=== PATIENT | male | born 1975 | race Caucasian/White ===

== ENCOUNTER 2018-11-02 11:25 | Observation (INO) | payer BC, OTHER ==
[2018-11-02] MEDS ORDERED: SODIUM CHLORIDE 1,000 ML IV STA ×4 (11:40→21:53)
[2018-11-02] MEDS ORDERED: FAMOTIDINE 20 MG/50 ML IVPB 20 MG/50 ML MG IVPB ONE ×2 (11:40→11:57)
[2018-11-02] MEDS ORDERED: ONDANSETRON 4 MG/2 ML VIAL IVPUSH ONE (11:40)
--- NOTE | 2018-11-02 11:40 | PDOC ---
History of Present Illness - General Chief Complaint: Nausea/Vomiting Stated Complaint: VOMITING FOR2 DAYS Time Seen by Provider: 11/02/18 11:39 History Source: Patient Exam Limitations: No Limitations - History of Present Illness Initial Comments: 11/02/18 11:45 43 y/o male with h/o kidney stones presenting with X 2 days of back pain, nausea and vomiting, diarrhea, inability to tolerate PO. attempted to take PO josefina, tea, gatorade without relief. He notes 10X episodes of NBNB yellowish vomiting x 2 days, yesterday started having watery brown nonbloody diarrhea x 2 episodes. No fever or chills, no cough/congestion, cp, sob. No AP, flank pain, urinary sx or hematuria. +back pain with vomiting and movement. +generalized weakness, headache and lightheadedness. No sick contacts or travel. No new changes in medications. no suspicous food intake. no recent abx use or contaminants. Allergies: NKA Past Medical History: kidney stones Social history: Lives with family. No smoking. No alcohol. No illicit drugs. no Marijuana use Surgical history: none ROS Constitutional: no fevers or chills. +general weakness HEENT: +headache and dizziness. No congestion. No visual/hearing disturbances. CVS: no cp or syncope. Resp: no sob. No cough. Gastrointestinal: NO abdominal pain, +nausea, diarrhea, vomiting. Genitourinary: no urinary sx, hematuria. MUSCULOSKELETAL: No joint pain and swelling. +back pain. SKIN: no redness or skin changes, no discharge, no rash. No wounds. Hematologic: no easy bruising/bleeding. NEUROLOGIC: +headache and dizziness. No LOC or altered mental status. No weakness, numbness or tingling. Allergic/Immunologic: no allergies All other systems reviewed and negative, or as documented in HPI. PE: General: actively vomiting, moderate distress 2/2 retching and vomiting. HEENT: NCAT, PERRL, EOMI, clear conjunctiva, anicteric, very dry mucus membranes, clear oropharynx, no oral lesions.. Neck: neck supple, FROM Resp: CTAB, normal and even respirations, no respiratory distress CVS: RRR, no murmurs, 2+ peripheral pulses throughout, no peripheral edema Abdomen: soft, obese, no rebound or guarding. No tenderness in all quadrants Back: nontender, normal inspection and ROM. no CVAT MSK: no edema, HALL x4, ROM intact. No clubbing or cyanosis. normal bulk and tone. Neuro: alert Skin: warm and well perfused, cap refill <2 sec, normal color 11/02/18 14:22 Past History - Past Medical History Allergies/Adverse Reactions: Allergies Allergy/AdvReac Type Severity Reaction Status Date / Time No Known Allergies Allergy Verified 11/02/18 11:26 Home Medications: Ambulatory Orders NK [No Known Home Medication] 11/02/18 Anemia: No Asthma: No Cancer: No Cardiac Disorders: No CVA: No COPD: No CHF: No Dementia: No Diabetes: No GI Disorders: No Disorders: No HTN: No Hypercholesterolemia: No Kidney Stones: Yes (X1) Liver Disease: No Seizures: No Thyroid Disease: No - Suicide/Smoking/Psychosocial Hx Smoking History: Never smoked Have you smoked in the past 12 months: No Information on smoking cessation initiated: No Hx Alcohol Use: No Drug/Substance Use Hx: No Substance Use Type: None *Physical Exam - Vital Signs Last Vital Signs Temp Pulse Resp BP Pulse Ox 98 F 88 16 140/91 99 11/02/18 11:26 11/02/18 11:26 11/02/18 11:26 11/02/18 11:26 11/02/18 11:26 Moderate Sedation - Procedure Monitoring Vital Signs: Procedure Monitoring Vital Signs Temperature 98 F 11/02/18 11:26 Pulse Rate 88 11/02/18 11:26 Respiratory Rate 16 11/02/18 11:26 Blood Pressure 140/91 11/02/18 11:26 O2 Sat by Pulse Oximetry (%) 99 11/02/18 11:26 ED Treatment Course - LABORATORY CBC & Chemistry Diagram: 11/02/18 11:51 11/02/18 11:51 Medical Decision Making - Medical Decision Making 11/02/18 14:30 See HPI for details DDx abdominal pain: Renal colic, ureteral stone, biliary colic, metabolic/ electrolyte derangements. GERD, PUD, esophageal spasm, pancreatitis, hepatitis, colitis, gastroenteritis, cholecystitis, UTI, pyelonephritis, hernia, appendicitis, diverticulitis, mesenteric ischemia, malignancy. Vital signs reviewed, wnl. Temp here 100.6 Prior notes reviewed, including admissions, discharges and consultations. laboratory results and imaging reviewed, basic labs and lytes notable for significant leukocytosis of 33K, changed from prior. Remainder wnl, lipase and LFTs normal. Lipase Blood and urine cx pending. Infectious/septic workup pending UA_prelim neg, no leuk esterase or signs of infection. f/u cultures. EKG normal sinus rhythm, no interval abnormalities, narrow QRS, ST and T wave segments and morphology normal. Nonspecific T wave abnormalities TWI in III only. No contiguous lead changes. ED course: IVF, zofran and pepcid with improvement. Febrile here, given IV tylenol for antipyretic effect, recheck temp. IV ceftriaxone and flagyl for empiric abdominal infection coverage. CT a/p to eval for inflammation/infection with leukocytosis. results_suspected enteritis/ileitis. left perinephric stranding noted. however, no UA findings of infection, no flank pain to suggest pyelo currently, eitherway was covered with ceftriaxone empirically for gut infection/abdominal process. admit to hospitalist service. for n/v/d with leukocytosis, AGE vs acute colitis vs enteritis. IV abx, serial labs and supportive care/management. spoke to STEPHANIE Bosch and signed out hospitalist service.. 11/02/18 15:20 11/02/18 15:23 *DC/Admit/Observation/Transfer Diagnosis at time of Disposition: Enteritis, Leukocytosis, Febrile illness, acute - Discharge Dispostion Condition at time of disposition: Fair Decision to Admit order: Yes Decision to Admit order Date/Time: 11/02/18 15:22 - Referrals - Patient Instructions - Post Discharge Activity
[2018-11-02] MEDS ORDERED: ONDANSETRON 4 MG/2 ML VIAL ONE (11:58)
[2018-11-02 12:06] LABS: HEMATOCRIT 46.6 % (35.4-49); HEMOGLOBIN 15.3 GM/dl (11.7-16.9); MCH 25.9 pg (25.7-33.7); MCHC 32.7 g/dl (32.0-35.9); MEAN CELL VOLUME 79.2 fl (80-96); MEAN PLT VOLUME 7.9 fl (7.5-11.1); PLATELET COUNT 276 K/MM3 (134-434); RBC 5.88 M/mm3 (4.00-5.60); RDW 14.2 % (11.9-15.9)
[2018-11-02 12:15] LABS: ALBUMIN 4.2 g/dl (3.4-5.0); ALK PHOS 118 U/L (45-117); ANION GAP 13 MMOL/L (8-16); BILIRUBIN,TOTAL 0.8 mg/dl (0.2-1); BLOOD UREA NITROGEN 18 mg/dl (7-18); CALCIUM 9.7 mg/dl (8.5-10); CHLORIDE 102 mmol/L (98-107); CO2 22 mmol/L (21-32); GLUCOSE,RANDOM 120 mg/dl (74-106); POTASSIUM 3.8 mmol/L (3.5-5.1); SGOT/AST 26 U/L (15-37); SGPT/ALT 21 U/L (13-61); SODIUM 137 mmol/L (136-145); TOT PROT 8.4 g/dl (6.4-8.2)
[2018-11-02 12:41] LABS: LIPASE 68 U/L (73-393)
[2018-11-02] MEDS ORDERED: ACETAMINOPHEN 1000 MG/100 ML VIAL (NON FORMULARY) IVPB ONE (12:47)
[2018-11-02] MEDS ORDERED: ACETAMINOPHEN INJECTION 100 ML IVPB ONE (12:53)
[2018-11-02] MEDS ORDERED: SODIUM CHLORIDE 0.9% 500 ML INFUS.BAG IV ONE (13:18)
[2018-11-02 13:34] LABS: PLATELET ESTIMATE ADEQUATE
[2018-11-02 14:06] LABS: URINE APPEARANCE Clear; URINE BILIRUBIN Negative (NEGATIVE); URINE COLOR Amber; URINE GLUCOSE (UA) Negative (NEGATIVE); URINE KETONE Negative (NEGATIVE); URINE LEUK ESTERASE Negative (NEGATIVE); URINE NITRITE Negative (NEGATIVE); URINE PROTEIN 1+ (NEGATIVE)
[2018-11-02] MEDS ORDERED: CEFTRIAXONE 1,000 MG in DEXTROSE 5%-WATER - 50 ML IVPB ONE (14:21)
[2018-11-02] MEDS ORDERED: cefTRIAXone SODIUM 1 GM VIAL ONE (14:37)
--- NOTE | 2018-11-02 15:28 | HP ---
CHIEF COMPLAINT: Vomiting HISTORY OF PRESENT ILLNESS: 43 year-old male with a PMH significant for kidney stones presented to the ED with nausea, vomiting, and watery diarrhea x 2 days. Emesis has been bilious, episodes of dry heaving. Reports little to no urine output today despite hydrating with tea and gatorade. No hematuria, hematochezia, hematemesis. Reports at least one episode of shaking chills. Reports generalized weakness, headache and lightheadedness. No sick contacts or travel. No suspicous food intake. No recent antibiotic use. 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 Smoking: denies Alcohol: denies Drugs: denies Family History: Allergies No Known Allergies Allergy (Verified 11/02/18 11:26) HOME MEDICATIONS: Home Medications Medication Instructions Recorded NK [No Known Home Medication] 11/02/18 REVIEW OF SYSTEMS CONSTITUTIONAL: Absent: fever, chills, diaphoresis, generalized weakness, malaise, loss of appetite, weight change HEENT: Absent: rhinorrhea, nasal congestion, throat pain, throat swelling, difficulty swallowing, mouth swelling, ear pain, eye pain, visual changes CARDIOVASCULAR: Absent: chest pain, syncope, palpitations, irregular heart rate, lightheadedness , peripheral edema RESPIRATORY: Absent: cough, shortness of breath, dyspnea with exertion, orthopnea, wheezing, stridor, hemoptysis GASTROINTESTINAL: +nausea, vomiting, watery diarrhea Absent: abdominal pain, abdominal distension, constipation, melena, hematochezia GENITOURINARY: +oliguria Absent: dysuria, frequency, urgency, hesitancy, hematuria, flank pain, genital pain MUSCULOSKELETAL: Absent: myalgia, arthralgia, joint swelling, back pain, neck pain SKIN: Absent: rash, itching, pallor HEMATOLOGIC/IMMUNOLOGIC: Absent: easy bleeding, easy bruising, lymphadenopathy, frequent infections ENDOCRINE: Absent: unexplained weight gain, unexplained weight loss, heat intolerance, cold intolerance NEUROLOGIC: Absent: headache, focal weakness or paresthesias, dizziness, unsteady gait, seizure, mental status changes, bladder or bowel incontinence PSYCHIATRIC: Absent: anxiety, depression, suicidal or homicidal ideation, hallucinations. PHYSICAL EXAMINATION Vital Signs - 24 hr 11/02/18 11/02/18 11/02/18 11:26 12:52 14:13 Temperature 98 F 100.6 F H 98.9 F Pulse Rate 88 Pulse Rate [ 84 Right Radial] Respiratory 16 Rate Blood Pressure 140/91 Blood Pressure 143/91 [Left Arm] O2 Sat by Pulse 99 99 Oximetry (%) GENERAL: Awake, alert, and fully oriented, in no acute distress. Ill-appearing. HEAD: Normal with no signs of trauma. EYES: Pupils equal, round and reactive to light, extraocular movements intact, sclera anicteric, conjunctiva clear. No lid lag. EARS, NOSE, THROAT: Ears normal, nares patent, oropharynx clear without exudates. Dry mucous membranes. NECK: Normal range of motion, supple without lymphadenopathy, JVD, or masses. LUNGS: Breath sounds equal, clear to auscultation bilaterally. No wheezes, and no crackles. No accessory muscle use. HEART: Regular rate and rhythm, normal S1 and S2 without murmur, rub or gallop. ABDOMEN: Soft, nontender, not distended; hypoactive bowel sounds, no guarding, no rebound tenderness MUSCULOSKELETAL: Normal range of motion at all joints. No bony deformities or tenderness. No CVA tenderness. UPPER EXTREMITIES: 2+ pulses, warm, well-perfused. No cyanosis. No clubbing. No peripheral edema. LOWER EXTREMITIES: 2+ pulses, warm, well-perfused. No calf tenderness. No peripheral edema. NEUROLOGICAL: Cranial nerves II-XII intact. Normal speech. Normal gait. PSYCHIATRIC: Cooperative. Good eye contact. Appropriate mood and affect. SKIN: Warm, dry, normal turgor Laboratory Results - last 24 hr 11/02/18 11/02/18 11/02/18 11:51 11:51 12:50 WBC 33.0 H* RBC 5.88 H Hgb 15.3 Hct 46.6 MCV 79.2 L MCH 25.9 MCHC 32.7 RDW 14.2 D Plt Count 276 MPV 7.9 Absolute Neuts (auto) 27.9 Neutrophils % No Result Required. Neutrophils % (Manual) 79.0 Band Neutrophils % 3.0 Lymphocytes % No Result Required. Lymphocytes % (Manual) 3.0 L Monocytes % (Manual) 15 H Platelet Estimate Adequate Sodium 137 Potassium 3.8 Chloride 102 Carbon Dioxide 22 Anion Gap 13 BUN 18 Creatinine 1.0 Creat Clearance w eGFR > 60 Random Glucose 120 H Lactic Acid 1.6 Calcium 9.7 Total Bilirubin 0.8 AST 26 ALT 21 Alkaline Phosphatase 118 H Total Protein 8.4 H Albumin 4.2 Lipase 68 L Urine Color Urine Appearance Urine pH Ur Specific [place] Urine Protein Urine Glucose (UA) Urine Ketones Urine Blood Urine Nitrite Urine Bilirubin Urine Urobilinogen Ur Leukocyte Esterase 11/02/18 13:51 WBC RBC Hgb Hct MCV MCH MCHC RDW Plt Count MPV Absolute Neuts (auto) Neutrophils % Neutrophils % (Manual) Band Neutrophils % Lymphocytes % Lymphocytes % (Manual) Monocytes % (Manual) Platelet Estimate Sodium Potassium Chloride Carbon Dioxide Anion Gap BUN Creatinine Creat Clearance w eGFR Random Glucose Lactic Acid Calcium Total Bilirubin AST ALT Alkaline Phosphatase Total Protein Albumin Lipase Urine Color Bridgett Urine Appearance Clear Urine pH 6.0 Ur Specific [place] 1.020 Urine Protein 1+ H Urine Glucose (UA) Negative Urine Ketones Negative Urine Blood Negative Urine Nitrite Negative Urine Bilirubin Negative Urine Urobilinogen 1.0 Ur Leukocyte Esterase Negative ASSESSMENT/PLAN 43 year-old male with a PMH significant for kidney stones placed on observation for sepsis possibly secondary to enteritis. Sepsis possibly secondary to enteritis --Tm 100.6, WBC 33k. lactic acid wnl --11/02 CTAP: equivocal minimal concentric wall thickening involving an ileal bowel loop within the right upper pelvis, seen previously; possible persistent/ recurrent enteritis, inflammatory v. infectious; minimal to mild left perirenal soft tissue stranding, acute v. chronic nonspecific inflammatory change --start empiric Zosyn, ID to follow; blood, urine, stool cx, c.diff pending --low volume state: received 2L fluids in ED, third fluid on admission, with no UOP; give fourth litre, then hourly fluids; monitor lytes and renal function closely; strict I&Os --Tylenol, Zofran PRN FEN Fluids: give 4th litre NS, then 125mL/hr Electrolytes: replete as indicated Nutrition: NPO DVT prophylaxis: subq lovenox Dispo: continues to require observation. Visit type - Emergency Visit Emergency Visit: Yes ED Registration Date: 11/02/18 Care time: The patient presented to the Emergency Department on the above date and was hospitalized for further evaluation of their emergent condition. - New Patient This patient is new to me today: Yes Date on this admission: 11/02/18 - Critical Care Critical Care patient: No
[2018-11-02 15:54] LABS: EPI CELLS FEW /HPF
--- NOTE | 2018-11-02 16:23 | CON.ID ---
Consult Consult Specialty:: infectious diseases Referred by:: peg Reason for Consultation:: leukocytosis,vomiting - History of Present Illness Chief Complaint: abd pain,vomiting History of Present Illness: 43 year-old male with a PMH significant for kidney stones presented to the ED with nausea, vomiting, and watery diarrhea x 2 days. Emesis has been bilious, episodes of dry heaving. Reports little to no urine output today despite hydrating with tea and gatorade. No hematuria, hematochezia, hematemesis. Reports at least one episode of shaking chills. Reports generalized weakness, headache and lightheadedness. No sick contacts or travel. No suspicous food intake. No recent antibiotic use. says he is not passing gases also mentions that he had the same type of symptoms before - History Source History Provided By: Patient Limitations to Obtaining History: No Limitations - Past Medical History Renal/: Yes: Renal Calculi - Past Surgical History Past Surgical History: Yes: None - Alcohol/Substance Use Hx Alcohol Use: No History of Substance Use: reports: None - Smoking History Smoking history: Never smoked Have you smoked in the past 12 months: No - Social History ADL: Independent Occupation: Employed at [employer] History of Recent Travel: No Home Medications - Allergies Allergies/Adverse Reactions: Allergies Allergy/AdvReac Type Severity Reaction Status Date / Time No Known Allergies Allergy Verified 11/02/18 11:26 - Home Medications Home Medications: Ambulatory Orders NK [No Known Home Medication] 11/02/18 Family Disease History - Family Disease History Family Disease History: Diabetes: Father Review of Systems - Review of Systems Constitutional: reports: Chills, Other Eyes: reports: No Symptoms HENT: reports: No Symptoms Neck: reports: No Symptoms Cardiovascular: reports: No Symptoms Respiratory: reports: No Symptoms Gastrointestinal: reports: Abdominal Pain, Bloating, Vomiting Genitourinary: reports: No Symptoms Musculoskeletal: reports: No Symptoms Integumentary: reports: No Symptoms Neurological: reports: No Symptoms Endocrine: reports: No Symptoms Hematology/Lymphatic: reports: No Symptoms Physical Exam Vital Signs: Vital Signs Temperature 98.9 F 11/02/18 14:13 Pulse Rate 84 11/02/18 14:13 Respiratory Rate 16 11/02/18 11:26 Blood Pressure 143/91 11/02/18 14:13 O2 Sat by Pulse Oximetry (%) 99 11/02/18 14:13 Constitutional: Yes: Well Nourished, No Distress, Calm Eyes: Yes: Conjunctiva Clear HENT: Yes: Atraumatic, Normocephalic Neck: Yes: Supple, Trachea Midline Cardiovascular: Yes: Regular Rate and Rhythm Respiratory: Yes: Regular, CTA Bilaterally Gastrointestinal: Yes: Soft, Other (absent bowel sounds) Musculoskeletal: Yes: WNL Extremities: Yes: WNL Neurological: Yes: Alert, Oriented Psychiatric: Yes: Alert, Oriented Labs: CBC, BMP 11/02/18 11:51 11/02/18 11:51 Imaging - Results Cat Scan: Report Reviewed, Image Reviewed Assessment/Plan i think this patient symptoms are due to gastritis or coul;d be due to gastric outlet obstruction 43 year-old male with a PMH significant for kidney stones placed on observation for sepsis possibly secondary to enteritis. Sepsis possibly secondary to enteritis leukocytosis abd pain vomiting weakness plan will continue abx for now once we have all the results will make final decisions follow wbc
[2018-11-02 17:09] VITALS: BMI 37.7
[2018-11-02] MEDS ORDERED: PIPERACILLIN/TAZOBACTAM 3.375 GM VIAL IVPB ONE (17:14)
[2018-11-02] MEDS ORDERED: DEXTROSE 5%-WATER - 50 ML IVPB ONE (17:14)
[2018-11-02] MEDS: PIPERACILLIN/TAZOB 3.375 GM 3.375 GM in DEXTROSE 5%-WATER - 50 ML IVPB SCH (17:18)
[2018-11-02] MEDS ORDERED: ACETAMINOPHEN 1000 MG/100 ML VIAL (NON FORMULARY) IVPB PRN (18:26)
[2018-11-02] MEDS: ONDANSETRON 4 MG/2 ML VIAL IVPUSH PRN (18:53)
[2018-11-02] MEDS ORDERED: SODIUM CHLORIDE 1,000 ML IV SCH (19:00)
[2018-11-03] MEDS: ONDANSETRON 4 MG/2 ML VIAL IVPUSH PRN ×2 (01:02→14:36)
[2018-11-03] MEDS ORDERED: DEXTROSE 5%-WATER - 50 ML IVPB ONE ×3 (02:33→17:08)
[2018-11-03] MEDS ORDERED: PIPERACILLIN/TAZOBACTAM 3.375 GM VIAL IVPB ONE ×3 (02:33→17:07)
[2018-11-03] MEDS: PIPERACILLIN/TAZOB 3.375 GM 3.375 GM in DEXTROSE 5%-WATER - 50 ML IVPB SCH ×3 (02:48→17:18)
[2018-11-03 08:14] LABS: BASO % 0.2 % (0-2.0); EOS % 0.1 % (0-4.5); HEMATOCRIT 40.1 % (35.4-49); HEMOGLOBIN 13.2 GM/dl (11.7-16.9); LYMPH % 6.3 % (8-40); MCH 26.3 pg (25.7-33.7); MCHC 32.9 g/dl (32.0-35.9); MEAN CELL VOLUME 79.9 fl (80-96); MONO % 8.2 % (3.8-10.2); NEUT % 85.2 % (42.8-82.8); PLATELET COUNT 245 K/MM3 (134-434); RBC 5.02 M/mm3 (4.00-5.60); RDW 14.1 % (11.9-15.9); WHITE BLOOD COUNT 22.8 K/mm3 (4.0-10.8)
[2018-11-03 08:18] LABS: ACTIVATED PTT 24.1 SECONDS (25.2-36.5)
[2018-11-03 08:23] LABS: ALBUMIN 3.3 g/dl (3.4-5.0); ALK PHOS 96 U/L (45-117); ANION GAP 11 MMOL/L (8-16); BILIRUBIN,TOTAL 0.7 mg/dl (0.2-1); BLOOD UREA NITROGEN 12 mg/dl (7-18); CALCIUM 8.3 mg/dl (8.5-10); CHLORIDE 104 mmol/L (98-107); CO2 23 mmol/L (21-32); CREATININE 0.8 mg/dl (0.55-1.3); GLUCOSE,RANDOM 122 mg/dl (74-106); INR 1.35 (0.82-1.09); MAGNESIUM 1.9 mg/dL (1.8-2.4); POTASSIUM 3.4 mmol/L (3.5-5.1); SGOT/AST 24 U/L (15-37); SGPT/ALT 23 U/L (13-61); SODIUM 138 mmol/L (136-145); TOT PROT 6.8 g/dl (6.4-8.2)
[2018-11-03 09:01] LABS: COCAINE, UR NEGATIVE ng/ml (CUTOFF=300); METHADONE, UR NEGATIVE ng/ml (CUTOFF=300); OPIATES, URI NEGATIVE ng/ml (CUTOFF=300); PHENCYCLIDINE,URINE NEGATIVE ng/ml (CUTOFF=25); URINE AMPHETAMINES NEGATIVE ng/ml (CUTOFF=500); URINE BARBITURATES NEGATIVE ng/ml (CUTOFF=200); URINE BENZODIAZEPINES NEGATIVE ng/ml (CUTOFF=200)
[2018-11-03] MEDS: ENOXAPARIN NA (PORCINE) 40 MG/0.4 ML DISP.SYRIN SQ SCH (10:04)
--- NOTE | 2018-11-03 10:09 | PN ---
Physical Exam: SUBJECTIVE: Patient seen and examined OBJECTIVE: Vital Signs Period Temp Pulse Resp BP Sys/[place] Pulse Ox Last 24 Hr 98 F-100.6 F 73-88 16-22 138-152/67-91 98-99 GENERAL: The patient is awake, alert, and fully oriented, in no acute distress. HEAD: Normal with no signs of trauma. EYES: PERRL, extraocular movements intact, sclera anicteric, conjunctiva clear. No ptosis. ENT: Ears normal, nares patent, oropharynx clear without exudates, moist mucous membranes. NECK: Trachea midline, full range of motion, supple. LUNGS: Breath sounds equal, clear to auscultation bilaterally, no wheezes, no crackles, no accessory muscle use. HEART: Regular rate and rhythm, S1, S2 without murmur, rub or gallop. ABDOMEN: Soft, nontender, nondistended, normoactive bowel sounds, no guarding, no rebound, no hepatosplenomegaly, no masses. EXTREMITIES: 2+ pulses, warm, well-perfused, no edema. NEUROLOGICAL: Cranial nerves II through XII grossly intact. Normal speech, gait not observed. PSYCH: Normal mood, normal affect. SKIN: Warm, dry, normal turgor, no rashes or lesions noted Laboratory Results - last 24 hr 11/02/18 11/02/18 11/02/18 11:51 11:51 12:50 WBC 33.0 H* RBC 5.88 H Hgb 15.3 Hct 46.6 MCV 79.2 L MCH 25.9 MCHC 32.7 RDW 14.2 D Plt Count 276 MPV 7.9 Absolute Neuts (auto) 27.9 Neutrophils % No Result Required. Neutrophils % (Manual) 79.0 Band Neutrophils % 3.0 Lymphocytes % No Result Required. Lymphocytes % (Manual) 3.0 L Monocytes % Monocytes % (Manual) 15 H Eosinophils % Basophils % Platelet Estimate Adequate PT with INR INR PTT (Actin FS) Sodium 137 Potassium 3.8 Chloride 102 Carbon Dioxide 22 Anion Gap 13 BUN 18 Creatinine 1.0 Creat Clearance w eGFR > 60 Random Glucose 120 H Lactic Acid 1.6 Calcium 9.7 Magnesium Total Bilirubin 0.8 AST 26 ALT 21 Alkaline Phosphatase 118 H Total Protein 8.4 H Albumin 4.2 Lipase 68 L Urine Color Urine Appearance Urine pH Ur Specific [place] Urine Protein Urine Glucose (UA) Urine Ketones Urine Blood Urine Nitrite Urine Bilirubin Urine Urobilinogen Ur Leukocyte Esterase Urine RBC Urine WBC Ur Epithelial Cells Opiates Screen Methadone Screen Barbiturate Screen Phencyclidine Screen Ur Amphetamines Screen MDMA (Ecstasy) Screen Benzodiazepines Screen Cocaine Screen U Marijuana (THC) Screen Influenza A (Rapid) Influenza B (Rapid) Blood Type Antibody Screen 11/02/18 11/02/18 11/02/18 13:51 20:20 22:30 WBC RBC Hgb Hct MCV MCH MCHC RDW Plt Count MPV Absolute Neuts (auto) Neutrophils % Neutrophils % (Manual) Band Neutrophils % Lymphocytes % Lymphocytes % (Manual) Monocytes % Monocytes % (Manual) Eosinophils % Basophils % Platelet Estimate PT with INR INR PTT (Actin FS) Sodium Potassium Chloride Carbon Dioxide Anion Gap BUN Creatinine Creat Clearance w eGFR Random Glucose Lactic Acid Calcium Magnesium Total Bilirubin AST ALT Alkaline Phosphatase Total Protein Albumin Lipase Urine Color Bridgett Urine Appearance Clear Urine pH 6.0 Ur Specific [place] 1.020 Urine Protein 1+ H Urine Glucose (UA) Negative Urine Ketones Negative Urine Blood Negative Urine Nitrite Negative Urine Bilirubin Negative Urine Urobilinogen 1.0 Ur Leukocyte Esterase Negative Urine RBC No Result Required. Urine WBC 2-5 Ur Epithelial Cells Few Opiates Screen Negative Methadone Screen Negative Barbiturate Screen Negative Phencyclidine Screen Negative Ur Amphetamines Screen Negative MDMA (Ecstasy) Screen Negative Benzodiazepines Screen Negative Cocaine Screen Negative U Marijuana (THC) Screen Positive A* Influenza A (Rapid) Negative Influenza B (Rapid) Negative Blood Type Antibody Screen 11/03/18 11/03/18 11/03/18 07:00 07:00 07:00 WBC 22.8 H RBC 5.02 Hgb 13.2 Hct 40.1 MCV 79.9 L MCH 26.3 MCHC 32.9 RDW 14.1 Plt Count 245 MPV 8.0 Absolute Neuts (auto) 19.5 Neutrophils % 85.2 H Neutrophils % (Manual) Band Neutrophils % Lymphocytes % 6.3 L D Lymphocytes % (Manual) Monocytes % 8.2 Monocytes % (Manual) Eosinophils % 0.1 Basophils % 0.2 Platelet Estimate PT with INR 15.0 H INR 1.35 H PTT (Actin FS) 24.1 L Sodium 138 Potassium 3.4 L Chloride 104 Carbon Dioxide 23 Anion Gap 11 BUN 12 Creatinine 0.8 Creat Clearance w eGFR > 60 Random Glucose 122 H Lactic Acid Calcium 8.3 L Magnesium 1.9 Total Bilirubin 0.7 AST 24 ALT 23 Alkaline Phosphatase 96 D Total Protein 6.8 Albumin 3.3 L Lipase Urine Color Urine Appearance Urine pH Ur Specific [place] Urine Protein Urine Glucose (UA) Urine Ketones Urine Blood Urine Nitrite Urine Bilirubin Urine Urobilinogen Ur Leukocyte Esterase Urine RBC Urine WBC Ur Epithelial Cells Opiates Screen Methadone Screen Barbiturate Screen Phencyclidine Screen Ur Amphetamines Screen MDMA (Ecstasy) Screen Benzodiazepines Screen Cocaine Screen U Marijuana (THC) Screen Influenza A (Rapid) Influenza B (Rapid) Blood Type Antibody Screen 11/03/18 07:00 WBC RBC Hgb Hct MCV MCH MCHC RDW Plt Count MPV Absolute Neuts (auto) Neutrophils % Neutrophils % (Manual) Band Neutrophils % Lymphocytes % Lymphocytes % (Manual) Monocytes % Monocytes % (Manual) Eosinophils % Basophils % Platelet Estimate PT with INR INR PTT (Actin FS) Sodium Potassium Chloride Carbon Dioxide Anion Gap BUN Creatinine Creat Clearance w eGFR Random Glucose Lactic Acid Calcium Magnesium Total Bilirubin AST ALT Alkaline Phosphatase Total Protein Albumin Lipase Urine Color Urine Appearance Urine pH Ur Specific [place] Urine Protein Urine Glucose (UA) Urine Ketones Urine Blood Urine Nitrite Urine Bilirubin Urine Urobilinogen Ur Leukocyte Esterase Urine RBC Urine WBC Ur Epithelial Cells Opiates Screen Methadone Screen Barbiturate Screen Phencyclidine Screen Ur Amphetamines Screen MDMA (Ecstasy) Screen Benzodiazepines Screen Cocaine Screen U Marijuana (THC) Screen Influenza A (Rapid) Influenza B (Rapid) Blood Type A POSITIVE Antibody Screen Negative Active Medications Generic Name Dose Route Start Last Admin Trade Name Freq PRN Reason Stop Dose Admin Acetaminophen 1,000 mg 11/02/18 18:26 Ofirmev Injection - IVPB Q6H PRN FEVER Enoxaparin Sodium 40 mg 11/03/18 10:00 Lovenox - SQ DAILY SUMIT Piperacillin Sod/Tazobactam 50 mls @ 100 mls/hr 11/02/18 18:00 11/03/18 02:48 Sod 3.375 gm/ Dextrose IVPB 100 mls/hr Q8H-IV SUMIT Administration Protocol Sodium Chloride 1,000 mls @ 125 mls/hr 11/02/18 19:00 Normal Saline - IV ASDIR SUMIT Ondansetron HCl 4 mg 11/02/18 18:21 11/03/18 01:02 Zofran Injection IVPUSH 4 mg Q6H PRN Administration NAUSEA Potassium Chloride 40 meq 11/03/18 10:15 K-Dur - PO 11/03/18 16:16 Q6H [facility] ASSESSMENT/PLAN: kidney stones 200410/13/15 same presentation: intractable vomiting diarrhea secondary to enteritis , severe dehydration Utox +THC 43 year-old male with a PMH significant for kidney stones placed on observation for sepsis possibly secondary to enteritis. Sepsis possibly secondary to enteritis --Tm 100.6, WBC 33k. lactic acid wnl --11/02 CTAP: equivocal minimal concentric wall thickening involving an ileal bowel loop within the right upper pelvis, seen previously; possible persistent/ recurrent enteritis, inflammatory v. infectious; minimal to mild left perirenal soft tissue stranding, acute v. chronic nonspecific inflammatory change --start empiric Zosyn, ID to follow; blood, urine, stool cx, c.diff pending --low volume state: received 2L fluids in ED, third fluid on admission, with no UOP; give fourth litre, then hourly fluids; monitor lytes and renal function closely; strict I&Os --Tylenol, Zofran PRN FEN Fluids: give 4th litre NS, then 125mL/hr Electrolytes: replete as indicated Nutrition: NPO DVT prophylaxis: subq lovenox
[2018-11-03] MEDS: POTASSIUM CHLORIDE TABS 20 MEQ TABLET.ER (FP) PO SCH ×2 (10:30→17:00)
--- NOTE | 2018-11-03 14:17 | EKG ---
Test Reason : Blood Pressure : / mmHG Vent. Rate : 080 BPM Atrial Rate : 080 BPM P-R Int : 120 ms QRS Dur : 092 ms QT Int : 384 ms P-R-T Axes : 068 010 -13 degrees QTc Int : 442 ms NORMAL SINUS RHYTHM NONSPECIFIC ST ABNORMALITY ABNORMAL ECG NO PREVIOUS ECGS AVAILABLE Confirmed by OLGA SILVA, RYAN ([id number]) on 11/03/2018 2:16:58 PM Referred By: DARYL DUMONT Confirmed By:RYAN ESPINOZA MD
--- NOTE | 2018-11-03 15:52 | PN ---
Progress Note, Physician History of Present Illness: patient not feeling very well had a bout of vomiting again says his stomach does not feel good - Current Medication List Current Medications: Active Medications Acetaminophen (Ofirmev Injection -) 1,000 mg IVPB Q6H PRN PRN Reason: FEVER Enoxaparin Sodium (Lovenox -) 40 mg SQ DAILY SUMIT Last Admin: 11/03/18 10:04 Dose: 40 mg Piperacillin Sod/Tazobactam (Sod 3.375 gm/ Dextrose) 50 mls @ 100 mls/hr IVPB Q8H-IV SUMIT; Protocol Last Admin: 11/03/18 10:04 Dose: 100 mls/hr Sodium Chloride (Normal Saline -) 1,000 mls @ 125 mls/hr IV ASDIR SUMIT Ondansetron HCl (Zofran Injection) 4 mg IVPUSH Q6H PRN PRN Reason: NAUSEA Last Admin: 11/03/18 14:36 Dose: 4 mg Potassium Chloride (K-Dur -) 40 meq PO Q6H SUMIT Stop: 11/03/18 16:16 Last Admin: 11/03/18 10:30 Dose: 40 meq - Objective Vital Signs: Vital Signs Temperature 99.0 F 11/03/18 14:00 Pulse Rate 66 11/03/18 14:00 Respiratory Rate 19 11/03/18 14:00 Blood Pressure 161/78 11/03/18 14:00 O2 Sat by Pulse Oximetry (%) 100 11/03/18 14:00 Constitutional: Yes: Calm, Mild Distress, Obese Cardiovascular: Yes: Regular Rate and Rhythm Gastrointestinal: Yes: Soft, Hypoactive Bowel Sounds, Vomiting Musculoskeletal: Yes: WNL Extremities: Yes: WNL Neurological: Yes: Alert, Oriented Psychiatric: Yes: Alert, Oriented Labs: CBC, BMP 11/03/18 07:00 11/03/18 07:00 INR, PTT INR 1.35 (0.82-1.09) H 11/03/18 07:00 Assessment/Plan i think this patient symptoms are due to gastritis or coul;d be due to gastric outlet obstruction 43 year-old male with a PMH significant for kidney stones placed on observation for sepsis possibly secondary to enteritis. Sepsis possibly secondary to enteritis leukocytosis abd pain vomiting weakness plan continue abx await for all cx reports monitor vomiting rest as per the team
[2018-11-04] MEDS ORDERED: DEXTROSE 5%-WATER - 50 ML IVPB ONE ×2 (01:12→09:29)
[2018-11-04] MEDS ORDERED: PIPERACILLIN/TAZOBACTAM 3.375 GM VIAL IVPB ONE ×2 (01:12→09:29)
[2018-11-04] MEDS: PIPERACILLIN/TAZOB 3.375 GM 3.375 GM in DEXTROSE 5%-WATER - 50 ML IVPB SCH ×2 (01:32→09:32)
[2018-11-04 09:16] LABS: BASO % 0.6 % (0-2.0); EOS % 0.1 % (0-4.5); NEUT % 76.2 % (42.8-82.8)
[2018-11-04 09:27] LABS: HEMATOCRIT 40.1 % (35.4-49); HEMOGLOBIN 13.1 GM/dl (11.7-16.9); LYMPH % 13.4 % (8-40); MCHC 32.8 g/dl (32.0-35.9); MEAN CELL VOLUME 79.1 fl (80-96); MEAN PLT VOLUME 8.5 fl (7.5-11.1); MONO % 9.7 % (3.8-10.2); PLATELET COUNT 257 K/MM3 (134-434); RBC 5.06 M/mm3 (4.00-5.60); RDW 14.2 % (11.9-15.9); WHITE BLOOD COUNT 11.7 K/mm3 (4.0-10.8)
[2018-11-04] MEDS: ENOXAPARIN NA (PORCINE) 40 MG/0.4 ML DISP.SYRIN SQ SCH (09:33)
[2018-11-04 09:47] LABS: ALBUMIN 3.2 g/dl (3.4-5.0); ALK PHOS 92 U/L (45-117); ANION GAP 6 MMOL/L (8-16); BILIRUBIN,TOTAL 0.6 mg/dl (0.2-1); BLOOD UREA NITROGEN 11 mg/dl (7-18); CALCIUM 8.4 mg/dl (8.5-10); CHLORIDE 107 mmol/L (98-107); CO2 26 mmol/L (21-32); CREATININE 0.7 mg/dl (0.55-1.3); GLUCOSE,RANDOM 107 mg/dl (74-106); MAGNESIUM 2.1 mg/dL (1.8-2.4); POTASSIUM 3.7 mmol/L (3.5-5.1); SGOT/AST 29 U/L (15-37); SGPT/ALT 35 U/L (13-61); SODIUM 139 mmol/L (136-145); TOT PROT 6.3 g/dl (6.4-8.2)
[2018-11-04 09:52] LABS: BILIRUBIN,DIRECT 0.1 mg/dL (0.0-0.2)
--- NOTE | 2018-11-04 15:35 | PN ---
Progress Note, Physician History of Present Illness: stable patient feels better no complaints wbc trending down - Current Medication List Current Medications: Active Medications Acetaminophen (Ofirmev Injection -) 1,000 mg IVPB Q6H PRN PRN Reason: FEVER Enoxaparin Sodium (Lovenox -) 40 mg SQ DAILY SUMIT Last Admin: 11/04/18 09:33 Dose: 40 mg Piperacillin Sod/Tazobactam (Sod 3.375 gm/ Dextrose) 50 mls @ 100 mls/hr IVPB Q8H-IV SUMIT; Protocol Last Admin: 11/04/18 09:32 Dose: 100 mls/hr Ondansetron HCl (Zofran Injection) 4 mg IVPUSH Q6H PRN PRN Reason: NAUSEA Last Admin: 11/03/18 14:36 Dose: 4 mg - Objective Vital Signs: Vital Signs Temperature 99.4 F 11/04/18 14:05 Pulse Rate 99 H 11/04/18 14:05 Respiratory Rate 19 11/04/18 14:05 Blood Pressure 155/88 11/04/18 14:05 O2 Sat by Pulse Oximetry (%) 100 11/04/18 14:05 Constitutional: Yes: No Distress, Calm Cardiovascular: Yes: Regular Rate and Rhythm Respiratory: Yes: Regular, CTA Bilaterally Gastrointestinal: Yes: Normal Bowel Sounds, Soft Musculoskeletal: Yes: WNL Extremities: Yes: WNL Neurological: Yes: Alert, Oriented Psychiatric: Yes: Alert, Oriented Labs: CBC, BMP 11/04/18 08:00 11/04/18 08:00 INR, PTT INR 1.35 (0.82-1.09) H 11/03/18 07:00 Assessment/Plan i think this patient symptoms are due to gastritis or coul;d be due to gastric outlet obstruction 43 year-old male with a PMH significant for kidney stones placed on observation for sepsis possibly secondary to enteritis. Sepsis possibly secondary to enteritis leukocytosis abd pain vomiting weakness plan continue abx awaiting cx reports monitor wbc once stable deescalate abx rest as per the team
[2018-11-04 16:02] VITALS: BP 150/78; PULSE 64; TEMP 98.2
--- NOTE | 2018-11-07 21:54 | DS ---
Physical Exam: SUBJECTIVE: Patient seen and examined. Feeling better, nausea has resolved. Tolerating PO. OBJECTIVE: Vital Signs Temperature 98.2 F 11/04/18 16:00 Pulse Rate 64 11/04/18 16:00 Respiratory Rate 18 11/04/18 16:00 Blood Pressure 150/78 11/04/18 16:00 O2 Sat by Pulse Oximetry (%) 100 11/04/18 16:00 PHYSICAL EXAM GENERAL: The patient is awake, alert, and fully oriented, in no acute distress. HEAD: Normal with no signs of trauma. EYES: PERRL, extraocular movements intact, sclera anicteric, conjunctiva clear. ENT: Ears normal, nares patent, oropharynx clear without exudates, moist mucous membranes. NECK: Trachea midline, full range of motion, supple. LUNGS: Breath sounds equal, clear to auscultation bilaterally, no wheezes, no crackles, no accessory muscle use. HEART: Regular rate and rhythm, S1, S2 without murmur, rub or gallop. ABDOMEN: Soft, nontender, nondistended, normoactive bowel sounds, no guarding, no rebound, no hepatosplenomegaly, no masses. EXTREMITIES: 2+ pulses, warm, well-perfused, no edema. NEUROLOGICAL: Cranial nerves II through XII grossly intact. Normal speech, gait not observed. PSYCH: Normal mood, normal affect. SKIN: Warm, dry, normal turgor, no rashes or lesions noted. LABS CBCD WBC 11.7 K/mm3 (4.0-10.8) H 11/04/18 08:00 RBC 5.06 M/mm3 (4.00-5.60) 11/04/18 08:00 Hgb 13.1 GM/dl (11.7-16.9) 11/04/18 08:00 Hct 40.1 % (35.4-49) 11/04/18 08:00 MCV 79.1 fl (80-96) L 11/04/18 08:00 MCHC 32.8 g/dl (32.0-35.9) 11/04/18 08:00 RDW 14.2 % (11.9-15.9) 11/04/18 08:00 Plt Count 257 K/MM3 (134-434) 11/04/18 08:00 MPV 8.5 fl (7.5-11.1) 11/04/18 08:00 CMP Sodium 139 mmol/L (136-145) 11/04/18 08:00 Potassium 3.7 mmol/L (3.5-5.1) 11/04/18 08:00 Chloride 107 mmol/L (98-107) 11/04/18 08:00 Carbon Dioxide 26 mmol/L (21-32) 11/04/18 08:00 Anion Gap 6 MMOL/L (8-16) L 11/04/18 08:00 BUN 11 mg/dl (7-18) 11/04/18 08:00 Creatinine 0.7 mg/dl (0.55-1.3) 11/04/18 08:00 Creat Clearance w eGFR > 60 (>60) 11/04/18 08:00 Calcium 8.4 mg/dl (8.5-10) L 11/04/18 08:00 Total Bilirubin 0.6 mg/dl (0.2-1) 11/04/18 08:00 AST 29 U/L (15-37) 11/04/18 08:00 ALT 35 U/L (13-61) 11/04/18 08:00 Alkaline Phosphatase 92 U/L (45-117) 11/04/18 08:00 Total Protein 6.3 g/dl (6.4-8.2) L 11/04/18 08:00 Albumin 3.2 g/dl (3.4-5.0) L 11/04/18 08:00 HOSPITAL COURSE: Date of Admission:11/02/18 Date of Discharge: 11/07/18 Pre hospital course 43 year-old male with a PMH significant for kidney stones presented to the ED with nausea, vomiting, and watery diarrhea x 2 days. Emesis has been bilious, episodes of dry heaving. Reports little to no urine output today despite hydrating with tea and gatorade. No hematuria, hematochezia, hematemesis. Reports at least one episode of shaking chills. Reports generalized weakness, headache and lightheadedness. No sick contacts or travel. No suspicous food intake. No recent antibiotic use. ER course (1) Tm 100.6, WBC 33k (2) NS x 2L (3) Ceftriaxone x 1; metronidazole IV x 1 Minutes to complete discharge: 35 Discharge Summary Reason For Visit: INTRACTABLE VOMITING WITH NAUSEA Condition: Improved - Instructions Diet, Activity, Other Instructions: A prescription has been sent to your pharmacy for augmentin, an antibiotic. Take this medication as directed and be sure to finish all the medication. Advance your diet slowly. Eat low fiber foods such as bananas, rice, applesauce , tea. Stay well-hydrated. Avoid caffeine. Return to the emergency department for any new or worsening symptoms. Good luck in law school!! Referrals: Magdy Sidhu [Non Staff, Medical] - Disposition: HOME - Home Medications Comprehensive Discharge Medication List: Ambulatory Orders Amox-Tr/K Cl [Augmentin - 875Mg Tablet] 1 tab PO BID #10 tablet 11/04/18 This patient is new to me today: No Emergency Visit: Yes ED Registration Date: 11/02/18 Care time: The patient presented to the Emergency Department on the above date and was hospitalized for further evaluation of their emergent condition. Critical Care patient: No - Discharge Referral Referred to [facility] Med P.C.: No
== END 2018-11-04 16:43 | disposition home or self-care (01) ==
LOC: FER 11:25 → FM/S 14:25 → UNDOADMOB 14:25 → INTOOBSV 14:25 → FM/S 18:21
PROVIDERS: ADMIT Internal Medicine; ATTEND Nurse Practitioner Acute Care
PROC: 3E03329 Introduction of Other Anti-infective into Peripheral Vein, Percutaneous Approach (ICD-10-PCS; principal; 2018-11-02)
PROC: 3E033NZ Introduction of Analgesics, Hypnotics, Sedatives into Peripheral Vein, Percutaneous Approach (ICD-10-PCS; 2018-11-02)
PROC: 3E033GC Introduction of Other Therapeutic Substance into Peripheral Vein, Percutaneous Approach (ICD-10-PCS; 2018-11-02)
PROC: 3E0337Z Introduction of Electrolytic and Water Balance Substance into Peripheral Vein, Percutaneous Approach (ICD-10-PCS; 2018-11-02)
PROC: 3E013GC Introduction of Other Therapeutic Substance into Subcutaneous Tissue, Percutaneous Approach (ICD-10-PCS; 2018-11-02)
DX: A41.89 Other specified sepsis (principal); K52.9 Noninfective gastroenteritis and colitis, unspecified; D72.829 Elevated white blood cell count, unspecified; R50.9 Fever, unspecified; R10.9 Unspecified abdominal pain; R53.1 Weakness; Z87.442 Personal history of urinary calculi
CPT/HCPCS: 36415; 74177-TC; 80048; 80053; 80076; 80307; 81003; 81015; 83605; 83690; 83735; 85025; 85610; 85730; 86850; 86900; 86901; 87040; 87045; 87046; 87086; 87324; 87449; 87804; 87899; 93005; 99284-25; G0378; J0131; J7030

== ENCOUNTER 2025-02-02 14:55 | Emergency (ER) | payer OTHER ==
[2025-02-02 15:11] VITALS: BP 163/96; PULSE 78; RESP 18; TEMP 98.4; BMI 34.9
[2025-02-02] MEDS ORDERED: FAMOTIDINE 20 MG/50 ML IVPB 20 MG/50 ML MG IVPB ONE (15:15)
[2025-02-02] MEDS ORDERED: ONDANSETRON 4 MG/2 ML VIAL ONE (15:15)
[2025-02-02] MEDS: SODIUM CHLORIDE 1,000 ML IV STA (15:30)
[2025-02-02] MEDS: ONDANSETRON 4 MG/2 ML VIAL IVPUSH ONE (15:30)
[2025-02-02] MEDS ORDERED: ACETAMINOPHEN INJECTION 100 ML ONE (15:32)
[2025-02-02] MEDS: FAMOTIDINE 20 MG/50 ML IVPB 20 MG/50 ML MG IVPB ONE (15:35)
[2025-02-02 15:46] LABS: HEMATOCRIT 38.3 % (40.1-51.0); HEMOGLOBIN 12.2 g/dL (13.7-17.5); MCHC 31.9 g/dl (32.3-36.5); MEAN CELL VOLUME 71.6 fl (79.0-92.2); MEAN PLT VOLUME 9.5 fl (9.4-12.4); PLATELET COUNT 305 x10^3/uL (163-337); RDW 15.4 % (12.1-15.9)
[2025-02-02] MEDS: ACETAMINOPHEN 1000 MG/100 ML BAG IVPB ONE (15:56)
[2025-02-02 16:27] LABS: ALBUMIN 4.6 g/dl (3.4-5.0); BILIRUBIN,TOTAL 0.7 mg/dl (0.2-1); CALCIUM 9.7 mg/dl (8.5-10.1); CREATININE 0.8 mg/dl (0.6-1.3); MAGNESIUM 1.8 mg/dL (1.8-2.4); POTASSIUM 3.5 mmol/L (3.5-5.1); TOT PROT 7.5 g/dl (6.4-8.2)
[2025-02-02] MEDS: LACTATED RINGERS SOLUTION 1,000 ML/1,000 ML INFUS.BAG IV STA (17:15)
[2025-02-02 17:22] LABS: HCV DIAGNOSTIC IN-HOUSE W/RFLX NON-REACTIVE (NONREACTIVE); HIV INTERPRETATION NEGATIVE (NEGATIVE)
[2025-02-02] MEDS ORDERED: cefTRIAXone SODIUM 1 GM VIAL ONE (18:28)
[2025-02-02] MEDS: CEFTRIAXONE 1,000 MG in DEXTROSE 5%-WATER - 50 ML IVPB ONE (18:34)
== END 2025-02-02 19:15 | disposition home or self-care (01) ==
LOC: FER 14:55
PROC: 3E033GC Introduction of Other Therapeutic Substance into Peripheral Vein, Percutaneous Approach (ICD-10-PCS; principal; 2025-02-02)
PROC: 3E03329 Introduction of Other Anti-infective into Peripheral Vein, Percutaneous Approach (ICD-10-PCS; 2025-02-02)
PROC: 3E033NZ Introduction of Analgesics, Hypnotics, Sedatives into Peripheral Vein, Percutaneous Approach (ICD-10-PCS; 2025-02-02)
PROC: 3E033GC Introduction of Other Therapeutic Substance into Peripheral Vein, Percutaneous Approach (ICD-10-PCS; 2025-02-02)
PROC: 3E0337Z Introduction of Electrolytic and Water Balance Substance into Peripheral Vein, Percutaneous Approach (ICD-10-PCS; 2025-02-02)
PROC: 3E0337Z Introduction of Electrolytic and Water Balance Substance into Peripheral Vein, Percutaneous Approach (ICD-10-PCS; 2025-02-02)
DX: K52.9 Noninfective gastroenteritis and colitis, unspecified (principal); J18.9 Pneumonia, unspecified organism; R11.10 Vomiting, unspecified; R50.9 Fever, unspecified; R10.9 Unspecified abdominal pain
CPT/HCPCS: 0241U-QW; 36415; 71045-TC-FY; 74177-TC; 80053; 81003; 81015; 83690; 83735; 84484; 85025; 86803; 87389; 93005; 99285-25; J0131; Q9967